=== PATIENT | male | born 1985 | race Caucasian/White ===

== ENCOUNTER → 2017-01-15 | Emergency (ER) | payer MEDICAID ==
[~2017-01-15] VITALS: Ht 177.8 cm; Wt 63.5 kg
[2017-01-15 13:13] VITALS: BP 129/75
== END | disposition left against medical advice (07) ==
LOC: ER 13:13
DX: Z53.21 Procedure and treatment not carried out due to patient leaving prior to being seen by health care provider (principal)
CPT/HCPCS: A4606; Z7610

== ENCOUNTER 2017-04-05 13:27 | Emergency (ER) | payer MEDICAID ==
[~2017-04-05] VITALS: Ht 177.8 cm; Wt 65.8 kg
[2017-04-05 14:41] LABS: BASOPHILS # (AUTO) 0.1 /CMM (0.0-0.2); BASOPHILS % (AUTO) 0.6 % (0.0-2.0); EOSINOPHILS # (AUTO) 0.3 /CMM (0.0-0.7); EOSINOPHILS % (AUTO) 3.4 % (0.0-6.0); HEMATOCRIT 40 % (39-51); HEMOGLOBIN 13.3 g/dL (13.5-17.5); LYMPHOCYTES # (AUTO) 1.6 /CMM (0.8-4.8); LYMPHOCYTES % (AUTO) 16.9 % (20.0-44.0); MEAN CORPUSCULAR HEMOGLOBIN 28 PG (26.0-33.0); MEAN CORPUSCULAR HGB CONC 33 g/dl (31.0-36.0); MEAN CORPUSCULAR VOLUME 83 fL (80-96); MONOCYTES # (AUTO) 0.9 /CMM (0.1-1.30); NEUTROPHILS # (AUTO) 6.7 /CMM (1.8-8.9); NEUTROPHILS % (AUTO) 70.1 % (43.0-81.0); PLATELET COUNT (AUTO) 219 /CMM (150-450); RDW COEFFICIENT OF VARIATION 13.2 (11.5-15.0); WHITE BLOOD COUNT (AUTO) 9.6 K/uL (4.3-11.0)
[2017-04-05 14:51] LABS: CREATININE 0.7 mg/dL (0.6-1.3); POTASSIUM 4.4 mmol/L (3.5-5.1)
[2017-04-05] MEDS ORDERED: IV NS 0.9% 250 ML IV ONE (15:10)
[2017-04-05] MEDS ORDERED: IOHEXOL-300 100 ML VIAL IV ONE (15:10)
--- NOTE | 2017-04-05 15:27 | NUR ---
PT TO CTSCAN
[2017-04-05] MEDS ORDERED: CLINDAMYCIN HCL 150 MG CAPSULE PO ONE ×2 (16:30→17:07)
[2017-04-05 17:02] VITALS: BP 112/60
--- NOTE | 2017-04-05 17:03 | NUR ---
Patient discharged to home in stable condition. Written and verbal after care instructions given. Patient verbalizes understanding of instruction. Prescription given.
== END 2017-04-05 17:03 | disposition home or self-care (01) ==
LOC: ER 13:28
DX: L03.213 Periorbital cellulitis (principal); F17.200 Nicotine dependence, unspecified, uncomplicated
CPT/HCPCS: 36415; 70487; 80048; 85025; 99285; A4606; J7050; Q9967; Z7610

== ENCOUNTER 2017-06-29 06:01 | Emergency (ER) | payer MEDICAID ==
[~2017-06-29] VITALS: Ht 177.8 cm; Wt 61.2 kg
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
[2017-06-29 06:41] VITALS: BP 134/87
== END 2017-06-29 06:42 | disposition home or self-care (01) ==
LOC: ER 06:06
DX: L02.512 Cutaneous abscess of left hand (principal); F10.10 Alcohol abuse, uncomplicated; F17.200 Nicotine dependence, unspecified, uncomplicated; Z86.19 Personal history of other infectious and parasitic diseases
CPT/HCPCS: A4606; Z7610

== ENCOUNTER 2017-10-22 15:39 | Inpatient (IN) | payer SELFPAY ==
[~2017-10-22] VITALS: Ht 172.7 cm; Wt 55.3 kg
--- NOTE | 2017-10-22 15:45 | NUR ---
AAOX3, BIBRA 102 C/O DRUG OVERDOSE, TOOK METH AND HEROIN, FEVER OF 103. PLACED ON MONITOR. STARTED IVHL 16G ON JAMES AND RAC. DR PLEITEZ AT FOR EVAL. VERBALLY ORDERED 2L NS TO BE GIVEN BOLUS.
[2017-10-22 15:57] LABS: BASOPHILS % (AUTO) 0.5 % (0.0-2.0); EOSINOPHILS % (AUTO) 0.3 % (0.0-6.0); HEMATOCRIT 38 % (39-51); HEMOGLOBIN 12.9 g/dL (13.5-17.5); LYMPHOCYTES # (AUTO) 0.2 /CMM (0.8-4.8); MEAN CORPUSCULAR HEMOGLOBIN 28 PG (26.0-33.0); MEAN CORPUSCULAR HGB CONC 34 g/dl (31.0-36.0); MEAN CORPUSCULAR VOLUME 82 fL (80-96); MONOCYTES % (AUTO) 0.4 % (2.0-12.0); NEUTROPHILS # (AUTO) 6.6 /CMM (1.8-8.9); NEUTROPHILS % (AUTO) 95.8 % (43.0-81.0); PLATELET COUNT (AUTO) 205 /CMM (150-450); RDW COEFFICIENT OF VARIATION 13.6 (11.5-15.0); RED BLOOD CELL COUNT(AUTO) 4.67 MIL/uL (4.5-6.0); WHITE BLOOD COUNT (AUTO) 6.8 K/uL (4.3-11.0)
[2017-10-22] MEDS ORDERED: ACETAMINOPHEN 650 MG/SUPP.RECT RC ONE (16:00)
[2017-10-22] MEDS ORDERED: IV NS 0.9% 1,000 ML IV PRN ×2 (16:00)
[2017-10-22] MEDS ORDERED: NALOXONE HCL 0.4 MG/ML AMPUL IV ONE (16:00)
[2017-10-22] MEDS ORDERED: NALOXONE HCL 0.4 MG/ML AMPUL ONE (16:03)
[2017-10-22] MEDS ORDERED: ACETAMINOPHEN 325 MG TABLET ONE (16:03)
[2017-10-22 16:10] LABS: CALCIUM, SERUM 8.7 mg/dL (8.5-10.1); CARBON DIOXIDE 25 mmol/L (21-32); CHLORIDE 101 mmol/L (98-107); CREATININE 1.5 mg/dL (0.6-1.3); GLUCOSE 120 mg/dL (74-106); POTASSIUM 3.1 mmol/L (3.5-5.1); SODIUM SERUM 136 mmol/L (136-145); UREA NITROGEN, BLOOD 20 mg/dL (7-18)
[2017-10-22 16:15] LABS: ALANINE AMINOTRANSFERASE 123 U/L (12-78); ALBUMIN 3.4 g/dL (3.4-5.0); ALKALINE PHOSPHATASE 176 U/L (46-116); ASPARTATE AMINOTRANSFERASE 239 U/L (15-37); BILIRUBIN,DIRECT 0.4 mg/dL (0.0-0.2); TOTAL PROTEIN, SERUM 7.4 g/dL (6.4-8.2)
[2017-10-22 16:16] LABS: ACETAMINOPHEN 0 ug/ml (10-30); ALCOHOL, BLOOD < 3 mg/dL (0-0); SALICYLATE 0.9 mg/dL (2.8-20.0)
[2017-10-22] MEDS ORDERED: ACETAMINOPHEN 325 MG TABLET PO ONE (16:30)
[2017-10-22] MEDS ORDERED: POTASSIUM CHLORIDE 20 MEQ TAB.PRT.SR PO ONE ×3 (17:00→19:00)
[2017-10-22] MEDS ORDERED: VANCOMYCIN 1 GM in IV D5W 250 ML IV ONE (17:00)
[2017-10-22] MEDS ORDERED: Magnesium 1GM/D5W 100ML PREMIX 200 ML IV ONE (17:05)
[2017-10-22] MEDS ORDERED: Magnesium 1 GM/2 ML VIAL IV ONE (17:30)
--- NOTE | 2017-10-22 17:43 | NUR ---
CALLED [facility] FOR PANEL CALL AND DR MCLAUGHLIN WAS PAGED. CALLED NURSING CUSTOM MILLER AND REQUESTED A MED SURG BED FOR THIS PT.
[2017-10-22 17:47] LABS: APPEARANCE,URINE CLEAR (CLEAR); BILIRUBIN,URINE NEGATIVE (NEGATIVE); BLOOD, URINE 1+ Ery/uL (NEGATIVE); COLOR,URINE YELLOW (YELLOW); KETONES,URINE NEGATIVE (NEGATIVE); LEUKOCYTE ESTERASE ,URINE NEGATIVE (NEGATIVE); NITRITE, URINE NEGATIVE (NEGATIVE); PROTEIN,URINE 2+ mg/dl (NEGATIVE); UGLUCOSE NEGATIVE (NEGATIVE); UROBILINOGEN,URINE 0.2 EU/dL (0.2)
[2017-10-22 18:00] LABS: WBC,URINE 0-2 /HPF (0-3)
[2017-10-22 18:01] LABS: BACTERIA,URINE 1+ /HPF (None Seen); SQUAMOUS EPITHELIAL CELL,UR 0-2 /HPF (None Seen)
[2017-10-22] MEDS ORDERED: ZOLPIDEM TARTRATE 5 MG TABLET PO PRN (18:30)
[2017-10-22] MEDS ORDERED: MAG HYDROX/AL HYDROX/SIMETH 30 ML UDC PO PRN (18:30)
[2017-10-22] MEDS ORDERED: MAGNESIUM HYDROXIDE 30 ML UDC PO PRN (18:30)
[2017-10-22] MEDS ORDERED: Z GUARD REMEDY 2 OZ OINT TP PRN (18:30)
[2017-10-22] MEDS ORDERED: ACETAMINOPHEN 325 MG TABLET PO PRN (18:30)
[2017-10-22] MEDS ORDERED: IV NS 0.9% 1,000 ML IV ONE (18:30)
[2017-10-22] MEDS ORDERED: HYDROCODONE/APAP 5/325MG 1 EACH TABLET PO PRN (18:30)
[2017-10-22] MEDS ORDERED: ONDANSETRON HCL/PF 4 MG/2 ML VIAL IVP PRN (18:30)
--- NOTE | 2017-10-22 18:31 | NUR ---
ASSIGNED TO TELE RM#: [id number], DX: SEPSIS, ACCEPTING MD: DR. MCLAUGHLIN
--- NOTE | 2017-10-22 18:46 | NUR ---
report given to floor nurse, pt is going to room 108.
[2017-10-22] MEDS ORDERED: LORAZEPAM INJ 2 MG/ML VIAL IV PRN (19:00)
--- NOTE | 2017-10-22 19:15 | NUR ---
PT IS GOING TO TELE VIA [employer] PER PROTOCOL.
--- NOTE | 2017-10-22 19:27 | NUR ---
PATIENT TRANSFERRED TO ROOM 108 PER ACLS PROTOCOL
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
[2017-10-22] MEDS: Magnesium 1GM/D5W 100ML PREMIX 100 ML IV SCH ×2 (19:48→21:42)
[2017-10-22 20:00] VITALS: BP 107/73
[2017-10-23] VITALS: BP 99/63
[2017-10-23 06:30] LABS: BASOPHILS % (AUTO) 0.1 % (0.0-2.0); EOSINOPHILS % (AUTO) 0.2 % (0.0-6.0); HEMATOCRIT 36 % (39-51); HEMOGLOBIN 11.7 g/dL (13.5-17.5); LYMPHOCYTES # (AUTO) 0.8 /CMM (0.8-4.8); LYMPHOCYTES % (AUTO) 4.4 % (20.0-44.0); MEAN CORPUSCULAR HEMOGLOBIN 28 PG (26.0-33.0); MEAN CORPUSCULAR HGB CONC 33 g/dl (31.0-36.0); MEAN CORPUSCULAR VOLUME 85 fL (80-96); MONOCYTES # (AUTO) 1.1 /CMM (0.1-1.30); MONOCYTES % (AUTO) 5.8 % (2.0-12.0); NEUTROPHILS # (AUTO) 16.1 /CMM (1.8-8.9); NEUTROPHILS % (AUTO) 89.5 % (43.0-81.0); PLATELET COUNT (AUTO) 187 /CMM (150-450); RDW COEFFICIENT OF VARIATION 14.4 (11.5-15.0); RED BLOOD CELL COUNT(AUTO) 4.19 MIL/uL (4.5-6.0)
[2017-10-23 06:45] LABS: CALCIUM, SERUM 7.9 mg/dL (8.5-10.1); CREATININE 1.1 mg/dL (0.6-1.3); MAGNESIUM 2.4 mg/dL (1.8-2.4); PHOSPHORUS 1.9 mg/dL (2.5-4.9); POTASSIUM 4.5 mmol/L (3.5-5.1)
--- NOTE | 2017-10-23 06:46 | NUR ---
RAILROAD CAR REPAIRMAN CLOSING NOTES, PATIENT SLEEPING AT THIS TIE, BUT EASILY AROUSABLE, BREATHING EVEN AND UNLABORED NO S/S OF ANY ACUTE DISTRESS AT THIS TIME, NO SOB, DISCOMFORT NOTED, PIV ACCESS IN RIGHT AC AND JAMES INTACT AND PATENT, NO SIGNIFICANT CHANGE OF CONDITION THROUGHOUT THE NIGHT, CALL LIGT W/I REACH, WILL ENDORSE CONTINUITY OF CARE TO ONCOMING NURSE,
--- NOTE | 2017-10-23 07:30 | NUR ---
OPEN SOAPER TENDER OPENING NOTES RECEIVED PATIENT IN STABLE CONDITION. IN NO APPARENT DISTRESS. BEDSIDE RAILS ARE UPX2. BED IS LOCKED AND LOWERED. CALL LIGHT IS WITHIN REACH. IV LINE IS INTACT AND PATENT. WILL CONTINUE TO MONITOR.
[2017-10-23 08:00] VITALS: BP 109/67
[2017-10-23 12:00] VITALS: BP 109/70
[2017-10-23] MEDS ORDERED: Sodium Phosphate 15 MMOL in IV D5W 250 ML IV ONE (13:00)
--- NOTE | 2017-10-23 13:15 | NUR ---
Social service consult requested by Dr. Gonzales for heroin use. Pt. is a 32 year old male who was admitted to [facility] for sepsis. SW met with pt. bedside. Pt. requested for SW to come back later stating, "I am too tired." SW to follow up with pt. at a later time when he is more alert and oriented.
[2017-10-23 16:00] VITALS: BP 109/68
--- NOTE | 2017-10-23 18:25 | NUR ---
SHIELD CLEANER CLOSING NOTES PATIENT IS RESTING IN NO APPARENT DISTRESS. BEDSIDE RAILS ARE UPX2. BED IS LOCKED AND LOWERED. CALL LIGHT IS WITHIN REACH. IV LINE IS INTACT AND PATENT. ALL NEEDS WERE MET. WILL ENDORSE CARE TO DEPUTY SHERIFF K9 HANDLER NURSE FOR ALVIN.
--- NOTE | 2017-10-23 19:25 | NUR ---
INTERNAL CARVER INITIAL NOTES, PATIENT SLEEPING AT THIS TIE, BUT EASILY AROUSABLE, BREATHING EVEN AND UNLABORED NO S/S OF ANY ACUTE DISTRESS AT THIS TIME, NO SOB, DISCOMFORT NOTED, NSR IN THE TELE MONITOR, PIV ACCESS IN RIGHT AC AND JAMES INTACT AND PATENT, ALL NEEDS PROVIDED, CALL LIGHT W/I REACH, WILL CONTINUE TO MONITOR CLOSELY.
[2017-10-23 20:00] VITALS: BP 121/92
[2017-10-24] VITALS: BP 126/93
--- NOTE | 2017-10-24 00:45 | NUR ---
ONELIA RN NOTES RECEIVED REPORT FROM ANDRÉS CARTWRIGHT. OF PT CARE. PT IS SLEEPING IN BED. A/O X2, V/S WNL , ON RU WITH SPO2 OF 98%. BED IN LOW, LOCKED POSITION, CALL LIGHT IN REACH. WILL CONT. TO MONITOR.
--- NOTE | 2017-10-24 00:45 | NUR ---
BOWLING FLOOR DESK CLERK NOTES, ENDORSED PATIENT TO BRENNAN RN FOR CONTINUITY OF CARE IN STABLE CONDITION AT THIS TIME.
[2017-10-24 04:00] VITALS: BP 128/94
[2017-10-24 07:30] LABS: BASOPHILS % (AUTO) 0.3 % (0.0-2.0); EOSINOPHILS % (AUTO) 0.9 % (0.0-6.0); HEMATOCRIT 39 % (39-51); HEMOGLOBIN 12.6 g/dL (13.5-17.5); LYMPHOCYTES # (AUTO) 1.1 /CMM (0.8-4.8); MEAN CORPUSCULAR HEMOGLOBIN 28 PG (26.0-33.0); MEAN CORPUSCULAR HGB CONC 33 g/dl (31.0-36.0); MEAN CORPUSCULAR VOLUME 85 fL (80-96); MONOCYTES # (AUTO) 0.7 /CMM (0.1-1.30); NEUTROPHILS # (AUTO) 9.3 /CMM (1.8-8.9); NEUTROPHILS % (AUTO) 82.8 % (43.0-81.0); PLATELET COUNT (AUTO) 205 /CMM (150-450); RDW COEFFICIENT OF VARIATION 14.8 (11.5-15.0); RED BLOOD CELL COUNT(AUTO) 4.53 MIL/uL (4.5-6.0); WHITE BLOOD COUNT (AUTO) 11.3 K/uL (4.3-11.0)
[2017-10-24 07:34] LABS: CALCIUM, SERUM 8.8 mg/dL (8.5-10.1); CREATININE 0.8 mg/dL (0.6-1.3); PHOSPHORUS 2.4 mg/dL (2.5-4.9); POTASSIUM 3.8 mmol/L (3.5-5.1)
[2017-10-24 08:00] VITALS: BP 121/84
[2017-10-24 12:00] VITALS: BP 121/93
[2017-10-24] MEDS ORDERED: K PHOS NEUTRAL 250 MG TABLET PO ONE (12:00)
--- NOTE | 2017-10-24 12:30 | NUR ---
dr sol in and dc order written.
--- NOTE | 2017-10-24 13:13 | NUR ---
Social met with pt. bedside. Pt. is alert and oriented x 4. Pt. was cooperative with SW during the assessment. Pt. states he is homeless and has been homeless for a year. Pt. has no source of income and panhandles for food and money. SW referred pt. to Dept. of client services manager and encouraged him to apply for General Relief and food stamps. Pt. has history of drug use. Pt. is originally from [place]. 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 Pt. last used methamphetamine prior to admission to [facility]. Pt. stated he has been in a drug program in [place] a few years ago. Pt. is interested in getting referrals to drug treatment programs and homeless long-term resources. Pt. has a diagnosis of Depression and Anxiety. When MERCEDES asked pt. if he is suicidal, pt. stated "yes." MERCEDES inquired with pt. if he had a plan and pt. responded stating " to overdose on drugs." Pt. denies homicidal ideations and visual/auditory hallucinations at this time. MERCEDES informed ONELIA dry pan charger Adele regarding pt. stating he is suicidal. YUNG Alva informed SW she will inform pt's physician Dr. Cruz. MERCEDES to offer pt. homeless long-term placement and resources and drug rehab resources prior to discharge. Addendum: 10/24/17 at 1354 by SADIQ LONG Pt.stated he has had one previous psychiatric hospitalization but couldn't recollect as to where and when.
--- NOTE | 2017-10-24 13:30 | NUR ---
RN NOTES PT IS SUICIDAL PER CASE MANAGEMENT, DR ELMA BELTRÁN NOTIFIED, ORDER RECEIVED FOR PSYCH CONSULT . GPS NOTIFED. CONTINUE TO MONITOR .
--- NOTE | 2017-10-24 14:00 | NUR ---
per broker in charge pt. told medardo soc.service that he is suicidal-so discharge held and dr. bhatti consult ordered.
[2017-10-24 16:00] VITALS: BP 101/68
--- NOTE | 2017-10-24 16:30 | NUR ---
dr. bhatti in to see pt.states pt. needs a drug rehab program.
--- NOTE | 2017-10-24 18:00 | NUR ---
per admission discharge rn, case mgmt. gone and pt. be be dc'd to a rehab tomorrow.
[2017-10-24 20:00] VITALS: BP 135/88
[2017-10-25] VITALS: BP 115/73
[2017-10-25 04:00] VITALS: BP 134/92
--- NOTE | 2017-10-25 07:30 | NUR ---
RN OPENING NOTE RECEIVED PT. PT STABLE AND SLEEPING IN BED. NO S/S OF RESP DISTRESS OR SOB. PT DOES NOT APPEAR TO BE IN PAIN AT THIS TIME. PER HEAD TENNIS COACH REPORT, PT SCHEDULED FOR DC TO LONG-TERM THIS MORNING. SAFETY MEASURES IN PLACE, CALL LIGHT WITHIN REACH. WILL CONTINUE TO MONITOR.
[2017-10-25 08:00] VITALS: BP 122/90
--- NOTE | 2017-10-25 10:01 | NUR ---
MERCEDES met with pt. bedside to discuss discharge plan. MERCEDES had earlier contacted [facility] and spoke to Killian Watkins who informed SW that they accept anyone and pt. does not have to have any insurance. Pt. must be willing to work 8 hours per day and program is Jew based and 6 months long. MERCEDES gave pt. information and address to [facility] located at [address] [place] [address]. [place] [id number]. Pt. informed MERECDES he will go there once discharged. MERCEDES encouraged pt. to get treatment. Pt. will need bus token upon discharge. MERCEDES also gave pt. referral to [facility] drug program located at [address], [place] and Homeless jail and food resources. Homeless Patient waiver form was signed by the pt. and placed in chart. ONELIA CRN updated regarding discharge plan. MERCEDES informed CRN to have pt. have lunch prior to discharge. No other social service needs are requested at this time. SW is available, if needed.
--- NOTE | 2017-10-25 12:30 | NUR ---
DISCHARGE NOTE PT DISCHARGED WITH REFERRAL TO LONG-TERM. PT STABLE, NO S/S OF RESP DISTRESS OR SOB, NO CO PAIN. DISCHARGE INSTRUCTIONS GIVEN. PT VERBALIZES UNDERSTANDING. EXIT CARE TEACHING PERFORMED. DISCHARGE INSTRUCTIONS AND BELONGINGS SHEET SIGNED, COPIED AND PLACED IN CHART. PT REQUESTED AND GIVEN ADDITIONAL RESOURCES FOR TRAVEL. PT LEFT HOSPITAL BY HIMSELF TO BUS STOP STATING THAT HE IS GOING TO THE REFERRED LONG-TERM.
== END 2017-10-25 12:23 | disposition home or self-care (01) | DRG 917 ==
LOC: EDUNIT# 15:39 → ER 15:40 → TELE1 18:49
PROVIDERS: ADMIT Family Medicine; ATTEND Family Medicine
DX: T40.1X1A Poisoning by heroin, accidental (unintentional), initial encounter (principal); N17.0 Acute kidney failure with tubular necrosis; E87.2 Acidosis; F11.20 Opioid dependence, uncomplicated; Y92.89 Other specified places as the place of occurrence of the external cause; E87.6 Hypokalemia; Z59.0 Homelessness; F17.210 Nicotine dependence, cigarettes, uncomplicated; E83.42 Hypomagnesemia; R73.9 Hyperglycemia, unspecified; F10.10 Alcohol abuse, uncomplicated; E83.39 Other disorders of phosphorus metabolism; D72.829 Elevated white blood cell count, unspecified; E86.0 Dehydration; Z86.19 Personal history of other infectious and parasitic diseases; F39 Unspecified mood [affective] disorder; F19.10 Other psychoactive substance abuse, uncomplicated
CPT/HCPCS: 36415; 70450-TC; 71045-TC; 80048-TC; 80061-TC; 80076-TC; 80305; 81000-TC; 83605-TC; 83735-TC; 84100-TC; 85025-TC; 87040-TC; 87081-TC; A4606; A6402; A9563; G0480; J2060; J2310; J3370; J3475; J7030; J7060; Z7610

== ENCOUNTER 2019-01-04 15:09 | Inpatient (IN) | payer MEDICAID, OTHER ==
[~2019-01-04] VITALS: Ht 177.8 cm; Wt 56.8 kg
[2019-01-04] MEDS ORDERED: HALOPERIDOL LACTATE INJ 5 MG/ML VIAL ONE (15:24)
[2019-01-04] MEDS ORDERED: FAMOTIDINE/PF INJ 20 MG/2 ML VIAL IV ONE ×2 (15:25→15:30)
[2019-01-04] MEDS ORDERED: MORPHINE SULFATE INJ 4 MG/ML DISP.SYRIN ONE ×2 (15:25→16:16)
[2019-01-04] MEDS ORDERED: HALOPERIDOL LACTATE INJ 5 MG/ML VIAL IV ONE (15:30)
[2019-01-04] MEDS ORDERED: ONDANSETRON HCL/PF 4 MG/2 ML VIAL IVP ONE (15:30)
[2019-01-04] MEDS ORDERED: MORPHINE SULFATE INJ 2 MG/ML DISP.SYRIN IV ONE ×2 (15:30→16:30)
[2019-01-04 15:31] LABS: BASOPHILS # (AUTO) 0.1 /CMM (0.0-0.2); BASOPHILS % (AUTO) 0.6 % (0.0-2.0); EOSINOPHILS % (AUTO) 1.6 % (0.0-6.0); HEMATOCRIT 41 % (39-51); HEMOGLOBIN 13.3 g/dL (13.5-17.5); LYMPHOCYTES # (AUTO) 2.6 /CMM (0.8-4.8); LYMPHOCYTES % (AUTO) 22.1 % (20.0-44.0); MEAN CORPUSCULAR HGB CONC 33 g/dl (31.0-36.0); MEAN CORPUSCULAR VOLUME 84 fL (80-96); MONOCYTES # (AUTO) 1.2 /CMM (0.1-1.30); MONOCYTES % (AUTO) 10.1 % (2.0-12.0); NEUTROPHILS # (AUTO) 7.7 /CMM (1.8-8.9); NEUTROPHILS % (AUTO) 65.6 % (43.0-81.0); PLATELET COUNT (AUTO) 300 /CMM (150-450); RED BLOOD CELL COUNT(AUTO) 4.86 MIL/uL (4.5-6.0); WHITE BLOOD COUNT (AUTO) 11.7 K/uL (4.3-11.0)
[2019-01-04 15:44] LABS: ALBUMIN 3.7 g/dL (3.4-5.0); BILIRUBIN,DIRECT 0.1 mg/dL (0.0-0.2); BILIRUBIN,TOTAL 0.5 mg/dL (0.2-1.0); CALCIUM, SERUM 9.4 mg/dL (8.5-10.1); CREATININE 0.9 mg/dL (0.6-1.3); POTASSIUM 4.2 mmol/L (3.5-5.1); TOTAL PROTEIN, SERUM 8.4 g/dL (6.4-8.2)
[2019-01-04] MEDS ORDERED: HYDROMORPHONE 1 MG/1 ML DISP.SYRIN ONE (17:28)
[2019-01-04] MEDS ORDERED: HYDROMORPHONE 1 MG/1 ML DISP.SYRIN IV ONE (17:30)
[2019-01-04] MEDS ORDERED: ONDANSETRON HCL/PF 4 MG/2 ML VIAL IVP PRN (20:00)
[2019-01-04 20:45] VITALS: BP 132/81
[2019-01-04] MEDS: IV NS 0.9% 1,000 ML IV PRN (21:45)
[2019-01-04] MEDS: LACTULOSE 10 G/15 ML UDC (PYXIS) PO SCH (22:46)
[2019-01-05] MEDS: LACTULOSE 10 G/15 ML UDC (PYXIS) PO SCH ×3 (04:07→17:35)
[2019-01-05 08:00] VITALS: BP 132/84
[2019-01-05] MEDS: MORPHINE SULFATE INJ 2 MG/ML DISP.SYRIN IV PRN ×2 (08:14→17:55)
[2019-01-05] MEDS: FAMOTIDINE/PF INJ 20 MG/2 ML VIAL IV SCH ×2 (08:14→21:36)
[2019-01-05 08:22] LABS: BASOPHILS % (AUTO) 0.2 % (0.0-2.0); EOSINOPHILS % (AUTO) 0.1 % (0.0-6.0); HEMATOCRIT 43 % (39-51); HEMOGLOBIN 14.2 g/dL (13.5-17.5); LYMPHOCYTES # (AUTO) 1.8 /CMM (0.8-4.8); LYMPHOCYTES % (AUTO) 10.3 % (20.0-44.0); MEAN CORPUSCULAR HGB CONC 33 g/dl (31.0-36.0); MEAN CORPUSCULAR VOLUME 83 fL (80-96); MONOCYTES # (AUTO) 1.8 /CMM (0.1-1.30); MONOCYTES % (AUTO) 10.5 % (2.0-12.0); NEUTROPHILS # (AUTO) 13.9 /CMM (1.8-8.9); NEUTROPHILS % (AUTO) 78.9 % (43.0-81.0); PLATELET COUNT (AUTO) 280 /CMM (150-450); WHITE BLOOD COUNT (AUTO) 17.5 K/uL (4.3-11.0)
[2019-01-05 08:33] LABS: CALCIUM, SERUM 9.1 mg/dL (8.5-10.1); CREATININE 0.8 mg/dL (0.6-1.3); MAGNESIUM 1.8 mg/dL (1.8-2.4); POTASSIUM 3.6 mmol/L (3.5-5.1)
[2019-01-05 08:53] LABS: THYROID STIMULATING HORMONE 1.291 uIU/mL (0.358-3.74)
[2019-01-05] MEDS ORDERED: PANTOPRAZOLE 40 MG VIAL IV SCH (09:00)
[2019-01-05] MEDS ORDERED: DIATR MEGLU/DIATRIZOATE SODIUM 120 ML BOTTLE (GASTROGRAPHIN) ONE (11:38)
[2019-01-05 16:00] VITALS: BP 145/86
[2019-01-05 16:03] LABS: APPEARANCE,URINE CLEAR (CLEAR); BILIRUBIN,URINE NEGATIVE (NEGATIVE); BLOOD, URINE TRACE Ery/uL (NEGATIVE); COLOR,URINE YELLOW (YELLOW); KETONES,URINE NEGATIVE (NEGATIVE); LEUKOCYTE ESTERASE ,URINE NEGATIVE (NEGATIVE); NITRITE, URINE NEGATIVE (NEGATIVE); PROTEIN,URINE NEGATIVE (NEGATIVE); UGLUCOSE NEGATIVE (NEGATIVE); UROBILINOGEN,URINE 0.2 EU/dL (0.2)
[2019-01-05 16:16] LABS: BACTERIA,URINE None seen /HPF (None Seen); SQUAMOUS EPITHELIAL CELL,UR None Seen /HPF (None Seen); WBC,URINE 0-2 /HPF (0-3)
[2019-01-05 20:00] VITALS: BP 136/90
[2019-01-05] MEDS: POLYETHYLENE GLYCOL 3350 17 GM POWD.PACK PO SCH (22:53)
[2019-01-05] MEDS: IV NS 0.9% 1,000 ML IV PRN (22:55)
[2019-01-06] MEDS: IV NS 0.9% 1,000 ML IV PRN (06:53)
[2019-01-06 07:13] LABS: BASOPHILS % (AUTO) 0.3 % (0.0-2.0); EOSINOPHILS % (AUTO) 0.2 % (0.0-6.0); HEMATOCRIT 40 % (39-51); HEMOGLOBIN 13.3 g/dL (13.5-17.5); LYMPHOCYTES # (AUTO) 1.8 /CMM (0.8-4.8); LYMPHOCYTES % (AUTO) 11.7 % (20.0-44.0); MEAN CORPUSCULAR HGB CONC 33 g/dl (31.0-36.0); MEAN CORPUSCULAR VOLUME 82 fL (80-96); MONOCYTES # (AUTO) 1.4 /CMM (0.1-1.30); MONOCYTES % (AUTO) 8.9 % (2.0-12.0); NEUTROPHILS # (AUTO) 12.1 /CMM (1.8-8.9); NEUTROPHILS % (AUTO) 78.9 % (43.0-81.0); PLATELET COUNT (AUTO) 290 /CMM (150-450); RED BLOOD CELL COUNT(AUTO) 4.89 MIL/uL (4.5-6.0); WHITE BLOOD COUNT (AUTO) 15.3 K/uL (4.3-11.0)
[2019-01-06 07:33] LABS: BILIRUBIN,DIRECT 0.2 mg/dL (0.0-0.2); BILIRUBIN,TOTAL 0.9 mg/dL (0.2-1.0); CALCIUM, SERUM 8.9 mg/dL (8.5-10.1); CREATININE 0.8 mg/dL (0.6-1.3); MAGNESIUM 1.9 mg/dL (1.8-2.4); PHOSPHORUS 2.5 mg/dL (2.5-4.9); POTASSIUM 3.5 mmol/L (3.5-5.1)
[2019-01-06 08:00] VITALS: BP 133/79
[2019-01-06] MEDS: FAMOTIDINE/PF INJ 20 MG/2 ML VIAL IV SCH ×2 (08:35→21:00)
[2019-01-06] MEDS ORDERED: LEVO500T2 PO (11:02)
[2019-01-06] MEDS: LEVOFLOXACIN (500MG) 500 MG TABLET PO SCH (11:53)
[2019-01-06 16:00] VITALS: BP 123/79
[2019-01-06 20:54] VITALS: BP 124/67
[2019-01-06] MEDS: POLYETHYLENE GLYCOL 3350 17 GM POWD.PACK PO SCH (22:04)
[2019-01-07 07:30] VITALS: BP 120/76
[2019-01-07 08:00] VITALS: BP 120/76
[2019-01-07] MEDS: FAMOTIDINE/PF INJ 20 MG/2 ML VIAL IV SCH (09:00)
[2019-01-07] MEDS: LEVOFLOXACIN (500MG) 500 MG TABLET PO SCH (10:01)
== END 2019-01-07 11:00 | disposition home or self-care (01) | DRG 247 ==
LOC: ER 15:12 → MED 20:33
PROVIDERS: ATTEND Registered Nurse
DX: K56.7 Ileus, unspecified (principal); J15.9 Unspecified bacterial pneumonia; B19.20 Unspecified viral hepatitis C without hepatic coma; K59.00 Constipation, unspecified; Z76.5 Malingerer [conscious simulation]; D72.829 Elevated white blood cell count, unspecified; F17.210 Nicotine dependence, cigarettes, uncomplicated; Z59.0 Homelessness; R74.0 Nonspecific elevation of levels of transaminase and lactic acid dehydrogenase [LDH]; F19.10 Other psychoactive substance abuse, uncomplicated
CPT/HCPCS: 36415; 74021; 74250-TC; 80048-TC; 80061-TC; 80076-TC; 81000-TC; 82247-TC; 82248-TC; 83690-TC; 83735-TC; 84100-TC; 84443-TC; 85025-TC; 87081-TC; C9113; G0378; J1170; J1630; J2270; J3490; J7030; Q9963

== ENCOUNTER 2019-06-12 15:59 | Emergency (ER) | payer OTHER ==
[~2019-06-12] VITALS: Ht 177.8 cm; Wt 61.2 kg
[~2019-06-12 15:59] MED LIST: LEVO500T2 PO
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
--- NOTE | 2019-06-12 16:13 | NUR ---
SEEN AND EXAMINED BY JOJO KWON NP.
--- NOTE | 2019-06-12 16:16 | NUR ---
COLLECTED URINE. TURNED INTO LAB
--- NOTE | 2019-06-12 16:35 | NUR ---
CUSTOMER INSIGHT ANALYST AT BEDSIDE FOR XRAY.
[2019-06-12] MEDS ORDERED: ACETAMINOPHEN ES 500 MG TABLET ONE (17:07)
[2019-06-12] MEDS: ACETAMINOPHEN ES 500 MG TABLET PO ONE (17:09)
--- NOTE | 2019-06-12 19:09 | NUR ---
report given to mary williamson for richie.
--- NOTE | 2019-06-12 20:39 | NUR ---
Patient is resting comfortably in bed with eyes closed. Easily aroused. VSS.
[2019-06-13 00:46] VITALS: BP 112/76
--- NOTE | 2019-06-13 00:46 | NUR ---
Patient discharged to home in stable condition. Written and verbal after care instructions given. Patient verbalizes understanding of instruction. VSS.
== END 2019-06-13 00:47 | disposition home or self-care (01) ==
LOC: ER 16:07
DX: S40.012A Contusion of left shoulder, initial encounter (principal); F19.10 Other psychoactive substance abuse, uncomplicated; F17.200 Nicotine dependence, unspecified, uncomplicated; Z86.19 Personal history of other infectious and parasitic diseases; Z59.0 Homelessness; Z79.899 Other long term (current) drug therapy; V19.9XXA Pedal cyclist (driver) (passenger) injured in unspecified traffic accident, initial encounter; Y93.89 Activity, other specified; Y92.410 Unspecified street and highway as the place of occurrence of the external cause; Y99.8 Other external cause status
CPT/HCPCS: 73030-TC

== ENCOUNTER 2019-08-12 11:40 | Emergency (ER) | payer OTHER ==
[~2019-08-12] VITALS: Ht 175.3 cm; Wt 64.4 kg
--- NOTE | 2019-08-12 11:49 | NUR ---
BIBRA TO ER BED 7. AAOX3. NOT IN RESP DISTRESS. BREATHING EVEN AND UNLBAORED. C/O SOB SINCE THIS MORNING. PT IS SATTING AT 99% ON RA. PT ADMITTED TO SMOKING AND INJECTING HEROIN THIS MORNING. PT IS PRESENTING S/S OF OVERDOSE. PT IS LETHARGIC. ARROUSABLE AND TALKING IN FULL SENTENCES. MD AT BEDSIDE FOR EVAL. WILL CONTINUE TO MONITOR
--- NOTE | 2019-08-12 12:00 | NUR ---
PT PROVIDED WITH FOOD TRAY
--- NOTE | 2019-08-12 14:13 | NUR ---
PT IN BED RESTING COMFORTABLE. NO RESP DISTRESS NOTED. BREATHING EVEN AND UNLABORED. VSS
--- NOTE | 2019-08-12 17:01 | NUR ---
PT AMBULATED TO BATHROOM W/O ASSIST
[2019-08-12] MEDS ORDERED: IBUPROFEN 400 MG TABLET ONE (17:15)
--- NOTE | 2019-08-12 17:26 | NUR ---
Patient discharged to home in stable condition. Written and verbal after care instructions given. Patient verbalizes understanding of instruction. Pt ambulatory with a steady gait
[2019-08-12 17:27] VITALS: BP 108/67
[2019-08-12] MEDS ORDERED: IBUPROFEN 400 MG TABLET PO ONE (17:30)
== END 2019-08-12 17:27 | disposition home or self-care (01) ==
LOC: ER 11:41
DX: T40.1X1A Poisoning by heroin, accidental (unintentional), initial encounter (principal); Z86.19 Personal history of other infectious and parasitic diseases; Z60.2 Problems related to living alone; Z79.899 Other long term (current) drug therapy; Y92.89 Other specified places as the place of occurrence of the external cause

== ENCOUNTER 2020-05-30 07:08 | Emergency (ER) | payer OTHER ==
[~2020-05-30] VITALS: Ht 175.3 cm; Wt 64.4 kg
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
--- NOTE | 2020-05-30 07:30 | NUR ---
SEEN AND EXAMINED BY .
--- NOTE | 2020-05-30 08:00 | NUR ---
URINE SPECIMEN COLLECTED AND SENT TO LAB.
--- NOTE | 2020-05-30 08:12 | NUR ---
pt at bedside noted trying to tie monitor wire to his neck. pt states he wants to and cant take it anymore. 1:1 sitter assigned at bedside for safety.
--- NOTE | 2020-05-30 08:20 | NUR ---
laborer rags at bedside for blood draw.
[2020-05-30 08:32] LABS: BASOPHILS # (AUTO) 0.1 /CMM (0.0-0.2); EOSINOPHILS % (AUTO) 0.8 % (0.0-6.0); HEMATOCRIT 39 % (39-51); HEMOGLOBIN 12.9 g/dL (13.5-17.5); LYMPHOCYTES # (AUTO) 0.9 /CMM (0.8-4.8); MEAN CORPUSCULAR HGB CONC 33 g/dl (31.0-36.0); MEAN CORPUSCULAR VOLUME 82 fL (80-96); MONOCYTES # (AUTO) 0.6 /CMM (0.1-1.30); MONOCYTES % (AUTO) 10.6 % (2.0-12.0); NEUTROPHILS # (AUTO) 4.4 /CMM (1.8-8.9); NEUTROPHILS % (AUTO) 72.6 % (43.0-81.0); PLATELET COUNT (AUTO) 295 /CMM (150-450); RED BLOOD CELL COUNT(AUTO) 4.75 MIL/uL (4.5-6.0); WHITE BLOOD COUNT (AUTO) 6.1 K/uL (4.3-11.0)
[2020-05-30 08:48] LABS: CALCIUM, SERUM 9.1 mg/dL (8.5-10.1); CARBON DIOXIDE 26 mmol/L (21-32); CHLORIDE 98 mmol/L (98-107); CREATININE 0.8 mg/dL (0.6-1.3); GLUCOSE 101 mg/dL (74-106); POTASSIUM 3.5 mmol/L (3.5-5.1); SODIUM SERUM 135 mmol/L (136-145); UREA NITROGEN, BLOOD 18 mg/dL (7-18)
[2020-05-30 08:53] LABS: ALANINE AMINOTRANSFERASE 45 U/L (12-78); ALBUMIN 3.6 g/dL (3.4-5.0); ALCOHOL, BLOOD < 3 mg/dL (0-0); ALKALINE PHOSPHATASE 115 U/L (46-116); ASPARTATE AMINOTRANSFERASE 42 U/L (15-37); BILIRUBIN,DIRECT 0.2 mg/dL (0.0-0.2); BILIRUBIN,TOTAL 0.6 mg/dL (0.2-1.0)
[2020-05-30 08:55] LABS: BILIRUBIN,URINE Negative (NEGATIVE); COLOR,URINE YELLOW (YELLOW); LEUKOCYTE ESTERASE ,URINE Negative (NEGATIVE); NITRITE, URINE Negative (NEGATIVE); PROTEIN,URINE Negative (NEGATIVE); UGLUCOSE Negative (NEGATIVE); UROBILINOGEN,URINE 0.2 EU/dL (0.2)
[2020-05-30 08:57] LABS: BACTERIA,URINE Rare /HPF (None Seen); RBC,URINE NONE SEEN /HPF (0-2); SQUAMOUS EPITHELIAL CELL,UR Few /HPF (None Seen); WBC,URINE NONE SEEN /HPF (0-3)
[2020-05-30 09:07] LABS: ACETAMINOPHEN < 10 ug/ml (10-30)
--- NOTE | 2020-05-30 12:42 | NUR ---
PT ACCEPTED TO [facility] UNDER DR. VINNY AKBAR [phone]
--- NOTE | 2020-05-30 12:54 | NUR ---
REPORT GIVEN TO NURSING RASHARD LANGE FOR ALVIN.
--- NOTE | 2020-05-30 13:24 | NUR ---
CALLED TRANSPORT [facility] ETA IS 60 VIC PER CANO.
--- NOTE | 2020-05-30 13:29 | NUR ---
LA ANTONIO SO CALL THE CAR X 2 [place] REF# [id number]
--- NOTE | 2020-05-30 13:44 | NUR ---
SPOKED TO YADIRA OF CALL THE CAR [facility] ETA 1430H.
--- NOTE | 2020-05-30 14:38 | NUR ---
REPORT GIVEN TO EMT FOR PT TRANSFER TO [facility].
[2020-05-30 14:39] VITALS: BP 127/68
== END 2020-05-30 14:39 ==
LOC: ER 07:10
DX: F99 Mental disorder, not otherwise specified (principal); F15.129 Other stimulant abuse with intoxication, unspecified; Z20.822 Contact with and (suspected) exposure to COVID-19; Z86.19 Personal history of other infectious and parasitic diseases
CPT/HCPCS: 36415; 80048; 80076; 80299; 80307; 80320; 81001; 85025; 87426; 99285; C9803; G0480

== ENCOUNTER 2020-09-08 19:28 | Emergency (ER) | payer OTHER ==
[~2020-09-08] VITALS: Ht 175.3 cm; Wt 61.2 kg
[2020-09-08 20:01] VITALS: BP 148/78
[2020-09-08] MEDS ORDERED: TRAM50TA2 PO (20:51)
[2020-09-08] MEDS ORDERED: IBUP-1955 PO (20:51)
== END 2020-09-08 21:07 | disposition home or self-care (01) ==
LOC: ER 19:34
DX: S52.692A Other fracture of lower end of left ulna, initial encounter for closed fracture (principal); F10.10 Alcohol abuse, uncomplicated; Y90.9 Presence of alcohol in blood, level not specified; Z86.19 Personal history of other infectious and parasitic diseases; Z60.2 Problems related to living alone; Z79.899 Other long term (current) drug therapy; W01.0XXA Fall on same level from slipping, tripping and stumbling without subsequent striking against object, initial encounter; Y93.89 Activity, other specified; Y92.89 Other specified places as the place of occurrence of the external cause; Y99.8 Other external cause status
CPT/HCPCS: 73090-TC

== ENCOUNTER 2020-12-28 12:34 | Emergency (ER) | payer OTHER ==
[~2020-12-28] VITALS: Ht 180.3 cm; Wt 65.8 kg
[~2020-12-28 12:34] MED LIST changes: +IBUP-1955 PO; +TRAM50TA2 PO
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
[2020-12-28] MEDS ORDERED: BACI/NEOM/POLY B OINT PKT 1 UDPKT PACKET TP ONE (13:00)
[2020-12-28] MEDS ORDERED: GENT3.5O4 LEFTEYE (13:22)
[2020-12-28 13:35] VITALS: BP 131/77
--- NOTE | 2020-12-28 13:36 | NUR ---
Patient given written and verbal discharge instructions. Patient verbalizes understanding of instructions. Patient is ambulatory with steady gait. Refuses offer of half-way placement. Patient given list of available shelters in surrounding area. refused to sign discharge paper.
== END 2020-12-28 13:36 | disposition home or self-care (01) ==
LOC: ER 12:42
DX: T15.82XA Foreign body in other and multiple parts of external eye, left eye, initial encounter (principal); Z60.2 Problems related to living alone; Z79.899 Other long term (current) drug therapy; X58.XXXA Exposure to other specified factors, initial encounter; Y93.89 Activity, other specified; Y92.89 Other specified places as the place of occurrence of the external cause; Y99.8 Other external cause status